=== PATIENT | female | born 1935 | race Caucasian/White ===

== ENCOUNTER 2021-12-18 | Inpatient (IN) | payer MEDICARE, BC ==
[2021-12-18] MEDS ORDERED: Iopamidol 370 76% 100 ML VIAL ONE (09:00)
[2021-12-18] MEDS ORDERED: Cepastat Lozenges 1 LOZ PO PRN (18:57)
[2021-12-18] MEDS ORDERED: Loperamide HCl 2 MG CAP PO PRN ×2 (18:57)
[2021-12-18] MEDS ORDERED: Senokot S 8.6-50 MG TAB PO PRN (18:57)
[2021-12-18] MEDS ORDERED: Acetaminophen 650 MG Suppository PR PRN (18:57)
[2021-12-18] MEDS ORDERED: Benzonatate 100 MG CAP PO PRN (18:57)
[2021-12-18] MEDS ORDERED: Guaifenesin DM 100-10/5 ML UDCUP PO PRN (18:57)
[2021-12-18] MEDS ORDERED: Ondansetron ODT 4 MG TAB PO PRN (18:57)
[2021-12-18] MEDS ORDERED: Promethazine HCl 25 MG SUPP PR PRN (18:57)
[2021-12-18] MEDS ORDERED: Calcium Carbonate 500 MG ChewTAB PO PRN (18:57)
[2021-12-18] MEDS ORDERED: Bisacodyl 5 MG TAB PO PRN (18:57)
[2021-12-18] MEDS ORDERED: Ondansetron PF 4 MG/2 ML Vial IVP PRN (18:57)
[2021-12-18] MEDS ORDERED: Bisacodyl 10 MG SUPP PR PRN (18:57)
[2021-12-18] MEDS ORDERED: Sodium Chloride 0.65% Nasal 44 ML BOT EA NARE PRN (18:57)
[2021-12-18] MEDS ORDERED: Ondansetron ODT 4 MG TAB SL PRN (20:30)
[2021-12-18] MEDS: levETIRAcetam 500 MG TAB PO SCH (21:00)
[2021-12-19 07:18] LABS: ALT (SGPT) 12 U/L (8-55); AST (SGOT) 18 U/L (5-34); Albumin 3.3 g/dL (3.4-4.8); Alkaline Phosphatase 70 U/L (40-110); Anion Gap 13 mmol/L (10-20); BUN (Urea Nitrogen) 13 mg/dL (9.8-20.1); Bilirubin, Total 0.4 mg/dL (0.2-1.2); Calc. Creatinine Clearance 59 mL/min (70-130); Calcium 8.5 mg/dL (7.8-10.44); Carbon Dioxide 24 mmol/L (23-31); Chloride 107 mmol/L (98-107); Globulin 2.6 g/dL (2.4-3.5); Glucose 92 mg/dL (83-110); Potassium 3.6 mmol/L (3.5-5.1); Protein, Total 5.9 g/dL (5.8-8.1); Sodium 140 mmol/L (136-145)
[2021-12-19 07:57] LABS: #Basophils 0.1 thou/uL (0.0-0.2); #Eosinphils 0.4 thou/uL (0.0-0.7); #Lymphocytes 1.1 thou/uL (1.20-3.40); #Monocytes 0.5 thou/uL (0.11-0.59); #Neutrophils 2.9 thou/uL (1.40-6.50); %Basophils 1.4 % (0.0-1.0); %Eosinophils 7.3 % (0.0-10.0); %Lymphocytes 22.5 % (21.0-51.0); %Monocytes 10.4 % (0.0-10.0); %Neutrophils 58.5 % (42.0-75.0); Hemoglobin 11.4 g/dL (12.0-16.0); Mean Corpuscular HGB CONC 31.9 g/dL (32.0-36.0); Mean Corpuscular Hemoglobin 24.5 pg (27.0-31.0); Mean Corpuscular Volume 76.8 fL (78.0-98.0); Mean Platelet Volume 7.7 fL (7.4-10.4); Platelet Count 362 thou/uL (130-400); RBC Distribution Width 15.9 % (11.5-14.5); Red Blood Cell (RBC) Count 4.66 mill/uL (4.20-5.40); White Blood Cell (WBC) Count 4.9 thou/uL (4.8-10.8)
[2021-12-19] MEDS: levETIRAcetam 500 MG TAB PO SCH ×2 (08:18→21:04)
[2021-12-19] MEDS: Aspirin 81 mg Enteric Coated Tablet PO SCH (08:18)
[2021-12-19] MEDS: Nebivolol HCl 2.5 MG TAB PO SCH (08:18)
[2021-12-19] MEDS: Clopidogrel Bisulfate 75 MG TAB PO SCH (08:18)
[2021-12-19] MEDS: Potassium Chloride 10 MEQ TAB PO SCH (08:19)
[2021-12-19] MEDS: Furosemide 20 MG TAB PO SCH (08:19)
[2021-12-19] MEDS: Loratadine 10 MG TAB PO SCH (08:59)
[2021-12-20] MEDS: Loratadine 10 MG TAB PO SCH (08:38)
[2021-12-20] MEDS: Potassium Chloride 10 MEQ TAB PO SCH (08:38)
[2021-12-20] MEDS: Nebivolol HCl 2.5 MG TAB PO SCH (08:38)
[2021-12-20] MEDS: levETIRAcetam 500 MG TAB PO SCH ×2 (08:39→21:37)
[2021-12-20] MEDS: Clopidogrel Bisulfate 75 MG TAB PO SCH (08:39)
[2021-12-20] MEDS: Furosemide 20 MG TAB PO SCH (08:39)
[2021-12-20] MEDS: Aspirin 81 mg Enteric Coated Tablet PO SCH (08:39)
[2021-12-21] MEDS: Acetaminophen 325 MG TAB PO PRN (04:13)
[2021-12-21] MEDS: Potassium Chloride 10 MEQ TAB PO SCH (07:51)
[2021-12-21] MEDS: Aspirin 81 mg Enteric Coated Tablet PO SCH (07:51)
[2021-12-21] MEDS: Clopidogrel Bisulfate 75 MG TAB PO SCH (07:52)
[2021-12-21] MEDS: Furosemide 20 MG TAB PO SCH (07:52)
[2021-12-21] MEDS: levETIRAcetam 500 MG TAB PO SCH ×2 (07:52→20:58)
[2021-12-21] MEDS: Nebivolol HCl 2.5 MG TAB PO SCH (07:52)
[2021-12-21] MEDS: Loratadine 10 MG TAB PO SCH (07:53)
[2021-12-22] MEDS: Nebivolol HCl 2.5 MG TAB PO SCH (08:02)
[2021-12-22] MEDS: Aspirin 81 mg Enteric Coated Tablet PO SCH (08:02)
[2021-12-22] MEDS: Furosemide 20 MG TAB PO SCH (08:02)
[2021-12-22] MEDS: Clopidogrel Bisulfate 75 MG TAB PO SCH (08:02)
[2021-12-22] MEDS: Potassium Chloride 10 MEQ TAB PO SCH (08:03)
[2021-12-22] MEDS: Loratadine 10 MG TAB PO SCH (08:03)
[2021-12-22] MEDS: levETIRAcetam 500 MG TAB PO SCH ×2 (08:03→20:50)
[2021-12-23] MEDS: Acetaminophen 325 MG TAB PO PRN ×2 (03:10→18:29)
[2021-12-23] MEDS: Loratadine 10 MG TAB PO SCH (07:45)
[2021-12-23] MEDS: Clopidogrel Bisulfate 75 MG TAB PO SCH (07:45)
[2021-12-23] MEDS: Furosemide 20 MG TAB PO SCH (07:45)
[2021-12-23] MEDS: levETIRAcetam 500 MG TAB PO SCH ×2 (07:46→21:02)
[2021-12-23] MEDS: Aspirin 81 mg Enteric Coated Tablet PO SCH (07:46)
[2021-12-23] MEDS: Nebivolol HCl 2.5 MG TAB PO SCH (07:46)
[2021-12-23] MEDS: Potassium Chloride 10 MEQ TAB PO SCH (07:46)
[2021-12-23] MEDS ORDERED: guaiFENesin ER 600 MG TAB PO PRN (22:12)
[2021-12-23] MEDS ORDERED: Fluticasone Propionate Nasal Spray 16 gm Bottle NASAL SCH (22:15)
[2021-12-23] MEDS ORDERED: traMADol HCl 50 MG TAB PO SCH (22:15)
[2021-12-24] MEDS: Potassium Chloride 10 MEQ TAB PO SCH (08:21)
[2021-12-24] MEDS: levETIRAcetam 500 MG TAB PO SCH ×2 (08:21→21:05)
[2021-12-24] MEDS: Nebivolol HCl 2.5 MG TAB PO SCH (08:21)
[2021-12-24] MEDS: Aspirin 81 mg Enteric Coated Tablet PO SCH (08:21)
[2021-12-24] MEDS: Furosemide 20 MG TAB PO SCH (08:21)
[2021-12-24] MEDS: traMADol HCl 50 MG TAB PO PRN ×2 (08:22→14:50)
[2021-12-24] MEDS: Clopidogrel Bisulfate 75 MG TAB PO SCH (08:23)
[2021-12-24] MEDS: Loratadine 10 MG TAB PO SCH (09:40)
[2021-12-24] MEDS ORDERED: Carbamide Peroxide 6.5% Otic Drops 15 ml Bottle EA EAR PRN (12:23)
[2021-12-24] MEDS: Fluticasone Propionate Nasal Spray 16 gm Bottle NASAL SCH (21:05)
[2021-12-24] MEDS: Carbamide Peroxide 6.5% Otic Drops 15 ml Bottle EA EAR SCH (21:07)
[2021-12-25] MEDS: Ibuprofen 800 MG TAB PO PRN ×2 (01:35→08:47)
[2021-12-25 05:14] LABS: Bilirubin Negative (Negative); Blood, Urine Trace (Negative); Clarity Hazy (Clear); Glucose, Urine (Dipstick) Negative (Negative); Ketone, Urine Negative (Negative); Leukocyte Small (Negative); Nitrite Negative (Negative); Protein, Urine (Dipstick) Negative (Neg-Trace); Urobilinogen 0.2 mg/dL (Less than 2)
[2021-12-25 05:23] LABS: RBC/HPF 0-3 HPF (0-3)
[2021-12-25 05:24] LABS: Bacteria/HPF 2+ HPF (None Seen)
[2021-12-25] MEDS: Nebivolol HCl 2.5 MG TAB PO SCH (08:45)
[2021-12-25] MEDS: Aspirin 81 mg Enteric Coated Tablet PO SCH (08:45)
[2021-12-25] MEDS: Fluticasone Propionate Nasal Spray 16 gm Bottle NASAL SCH ×2 (08:46→20:07)
[2021-12-25] MEDS: levETIRAcetam 500 MG TAB PO SCH ×2 (08:46→20:06)
[2021-12-25] MEDS: Loratadine 10 MG TAB PO SCH (08:46)
[2021-12-25] MEDS: Potassium Chloride 10 MEQ TAB PO SCH (08:46)
[2021-12-25] MEDS: Furosemide 20 MG TAB PO SCH (08:46)
[2021-12-25] MEDS: Clopidogrel Bisulfate 75 MG TAB PO SCH (08:46)
[2021-12-25] MEDS: Carbamide Peroxide 6.5% Otic Drops 15 ml Bottle EA EAR SCH ×3 (08:53→20:08)
[2021-12-26] MEDS: Ibuprofen 800 MG TAB PO PRN (03:12)
[2021-12-26 03:45] LABS: Bilirubin Negative (Negative); Blood, Urine Negative (Negative); Clarity Clear (Clear); Glucose, Urine (Dipstick) Negative (Negative); Ketone, Urine 15 mg/dL (Negative); Leukocyte Trace (Negative); Nitrite Positive (Negative); Protein, Urine (Dipstick) Negative (Neg-Trace); Specific Gravity, Urine 1.025 (1.005-1.030); Urobilinogen 0.2 mg/dL (Less than 2); pH, Urine 5.5 (5.0-9.0)
[2021-12-26 03:51] LABS: Bacteria/HPF 2+ HPF (None Seen); RBC/HPF 0-3 HPF (0-3); Squamous Epithelial 0-3 HPF (0-3)
[2021-12-26 03:53] LABS: Urine Culture Reflex Yes Yes
[2021-12-26] MEDS: Acetaminophen 325 MG TAB PO PRN (04:10)
[2021-12-26] MEDS: Loratadine 10 MG TAB PO SCH (09:15)
[2021-12-26] MEDS: Clopidogrel Bisulfate 75 MG TAB PO SCH (09:15)
[2021-12-26] MEDS: levETIRAcetam 500 MG TAB PO SCH ×2 (09:15→21:30)
[2021-12-26] MEDS: Nebivolol HCl 2.5 MG TAB PO SCH (09:15)
[2021-12-26] MEDS: Aspirin 81 mg Enteric Coated Tablet PO SCH (09:15)
[2021-12-26] MEDS: Furosemide 20 MG TAB PO SCH (09:16)
[2021-12-26] MEDS: Carbamide Peroxide 6.5% Otic Drops 15 ml Bottle EA EAR SCH (09:16)
[2021-12-26] MEDS: Potassium Chloride 10 MEQ TAB PO SCH (09:17)
[2021-12-26 09:44] LABS: #Basophils 0.1 thou/uL (0.0-0.2); #Eosinphils 0.2 thou/uL (0.0-0.7); #Lymphocytes 1.1 thou/uL (1.20-3.40); #Monocytes 0.7 thou/uL (0.11-0.59); #Neutrophils 4.1 thou/uL (1.40-6.50); %Basophils 1.2 % (0.0-1.0); %Eosinophils 2.6 % (0.0-10.0); %Lymphocytes 17.4 % (21.0-51.0); %Monocytes 10.9 % (0.0-10.0); Hemoglobin 11.4 g/dL (12.0-16.0); Mean Corpuscular HGB CONC 31.3 g/dL (32.0-36.0); Mean Corpuscular Hemoglobin 24.2 pg (27.0-31.0); Mean Corpuscular Volume 77.1 fL (78.0-98.0); Mean Platelet Volume 8.4 fL (7.4-10.4); Platelet Count 333 thou/uL (130-400); RBC Distribution Width 16.6 % (11.5-14.5); Red Blood Cell (RBC) Count 4.72 mill/uL (4.20-5.40)
[2021-12-26 09:47] LABS: ALT (SGPT) 8 U/L (8-55); AST (SGOT) 14 U/L (5-34); Albumin 3.5 g/dL (3.4-4.8); Alkaline Phosphatase 73 U/L (40-110); Anion Gap 14 mmol/L (10-20); BUN (Urea Nitrogen) 23 mg/dL (9.8-20.1); Bilirubin, Total 0.4 mg/dL (0.2-1.2); Calc. Creatinine Clearance 38 mL/min (70-130); Calcium 9.1 mg/dL (7.8-10.44); Carbon Dioxide 25 mmol/L (23-31); Chloride 101 mmol/L (98-107); Globulin 2.7 g/dL (2.4-3.5); Glucose 125 mg/dL (83-110); Potassium 4.2 mmol/L (3.5-5.1); Protein, Total 6.2 g/dL (5.8-8.1); Sodium 136 mmol/L (136-145)
[2021-12-26] MEDS ORDERED: Sodium Chloride 0.9% 1,000 ML IV SCH (17:00)
[2021-12-26] MEDS: Fluticasone Propionate Nasal Spray 16 gm Bottle NASAL SCH (21:30)
[2021-12-26] MEDS: Ciprofloxacin 500 MG TAB PO SCH (21:30)
[2021-12-27] MEDS: Ciprofloxacin 500 MG TAB PO SCH ×2 (05:19→21:21)
[2021-12-27] MEDS: Clopidogrel Bisulfate 75 MG TAB PO SCH (07:46)
[2021-12-27] MEDS: Nebivolol HCl 2.5 MG TAB PO SCH (07:46)
[2021-12-27] MEDS: levETIRAcetam 500 MG TAB PO SCH ×2 (07:47→21:21)
[2021-12-27] MEDS: Aspirin 81 mg Enteric Coated Tablet PO SCH (07:47)
[2021-12-27] MEDS: Loratadine 10 MG TAB PO SCH (07:47)
[2021-12-27] MEDS: Potassium Chloride 10 MEQ TAB PO SCH (07:47)
[2021-12-27] MEDS: Furosemide 20 MG TAB PO SCH (07:47)
[2021-12-27] MEDS ORDERED: Sodium Chloride 0.9% 500 ML IVPB SCH (08:30)
[2021-12-27] MEDS: Fluticasone Propionate Nasal Spray 16 gm Bottle NASAL SCH (21:21)
[2021-12-28] MEDS: Ciprofloxacin 500 MG TAB PO SCH ×2 (05:53→20:36)
[2021-12-28] MEDS: Aspirin 81 mg Enteric Coated Tablet PO SCH (08:40)
[2021-12-28] MEDS: Nebivolol HCl 2.5 MG TAB PO SCH (08:40)
[2021-12-28] MEDS: levETIRAcetam 500 MG TAB PO SCH ×2 (08:40→20:36)
[2021-12-28] MEDS: Potassium Chloride 10 MEQ TAB PO SCH (08:40)
[2021-12-28] MEDS: Loratadine 10 MG TAB PO SCH (08:40)
[2021-12-28] MEDS: Furosemide 20 MG TAB PO SCH (08:40)
[2021-12-28] MEDS: Clopidogrel Bisulfate 75 MG TAB PO SCH (08:40)
[2021-12-28] MEDS: Fluticasone Propionate Nasal Spray 16 gm Bottle NASAL SCH (20:36)
[2021-12-29] MEDS: Ciprofloxacin 500 MG TAB PO SCH ×2 (05:34→20:39)
[2021-12-29] MEDS: Clopidogrel Bisulfate 75 MG TAB PO SCH (08:42)
[2021-12-29] MEDS: levETIRAcetam 500 MG TAB PO SCH ×2 (08:42→20:39)
[2021-12-29] MEDS: Furosemide 20 MG TAB PO SCH (08:42)
[2021-12-29] MEDS: Potassium Chloride 10 MEQ TAB PO SCH (08:42)
[2021-12-29] MEDS: Aspirin 81 mg Enteric Coated Tablet PO SCH (08:42)
[2021-12-29] MEDS: Nebivolol HCl 2.5 MG TAB PO SCH (08:42)
[2021-12-29] MEDS: Loratadine 10 MG TAB PO SCH (08:43)
[2021-12-29 09:37] LABS: Anion Gap 13 mmol/L (10-20); BUN (Urea Nitrogen) 15 mg/dL (9.8-20.1); Calc. Creatinine Clearance 48 mL/min (70-130); Calcium 8.8 mg/dL (7.8-10.44); Carbon Dioxide 23 mmol/L (23-31); Chloride 106 mmol/L (98-107); Glucose 112 mg/dL (83-110); Potassium 3.4 mmol/L (3.5-5.1); Sodium 139 mmol/L (136-145)
[2021-12-29 10:07] LABS: #Basophils 0.1 thou/uL (0.0-0.2); #Eosinphils 0.3 thou/uL (0.0-0.7); #Lymphocytes 1.4 thou/uL (1.20-3.40); #Monocytes 0.5 thou/uL (0.11-0.59); #Neutrophils 4.8 thou/uL (1.40-6.50); %Basophils 1.2 % (0.0-1.0); %Eosinophils 4.8 % (0.0-10.0); %Lymphocytes 19.5 % (21.0-51.0); %Monocytes 6.8 % (0.0-10.0); %Neutrophils 67.7 % (42.0-75.0); Mean Corpuscular HGB CONC 30.3 g/dL (32.0-36.0); Mean Corpuscular Hemoglobin 24.1 pg (27.0-31.0); Mean Corpuscular Volume 79.5 fL (78.0-98.0); Platelet Count 401 thou/uL (130-400); RBC Distribution Width 17.6 % (11.5-14.5); White Blood Cell (WBC) Count 7.1 thou/uL (4.8-10.8)
[2021-12-29] MEDS: Fluticasone Propionate Nasal Spray 16 gm Bottle NASAL SCH (20:39)
[2021-12-30] MEDS: Nebivolol HCl 2.5 MG TAB PO SCH (08:55)
[2021-12-30] MEDS: Clopidogrel Bisulfate 75 MG TAB PO SCH (08:58)
[2021-12-30] MEDS: levETIRAcetam 500 MG TAB PO SCH ×2 (08:58→21:16)
[2021-12-30] MEDS: Furosemide 20 MG TAB PO SCH (08:59)
[2021-12-30] MEDS: Loratadine 10 MG TAB PO SCH (08:59)
[2021-12-30] MEDS: Potassium Chloride 10 MEQ TAB PO SCH (08:59)
[2021-12-30] MEDS: Aspirin 81 mg Enteric Coated Tablet PO SCH (08:59)
[2021-12-30] MEDS: Acetaminophen 325 MG TAB PO PRN (09:40)
[2021-12-30] MEDS: Fluticasone Propionate Nasal Spray 16 gm Bottle NASAL SCH (21:22)
[2021-12-31] MEDS: Nebivolol HCl 2.5 MG TAB PO SCH (08:16)
[2021-12-31] MEDS: Furosemide 20 MG TAB PO SCH (08:16)
[2021-12-31] MEDS: Potassium Chloride 20 MEQ TAB PO SCH (08:16)
[2021-12-31] MEDS: Aspirin 81 mg Enteric Coated Tablet PO SCH (08:16)
[2021-12-31] MEDS: levETIRAcetam 500 MG TAB PO SCH ×2 (08:17→21:40)
[2021-12-31] MEDS: Clopidogrel Bisulfate 75 MG TAB PO SCH (08:17)
[2021-12-31] MEDS: Loratadine 10 MG TAB PO SCH (08:17)
[2021-12-31] MEDS: Acetaminophen 325 MG TAB PO PRN (08:30)
[2021-12-31] MEDS: Fluticasone Propionate Nasal Spray 16 gm Bottle NASAL SCH (21:40)
[2022-01-01 06:39] LABS: #Basophils 0.1 thou/uL (0.0-0.2); #Eosinphils 0.4 thou/uL (0.0-0.7); #Lymphocytes 1.2 thou/uL (1.20-3.40); #Monocytes 0.6 thou/uL (0.11-0.59); #Neutrophils 4.1 thou/uL (1.40-6.50); %Basophils 1.3 % (0.0-1.0); %Eosinophils 5.5 % (0.0-10.0); %Lymphocytes 19.5 % (21.0-51.0); %Neutrophils 64.7 % (42.0-75.0); Hemoglobin 11.1 g/dL (12.0-16.0); Mean Corpuscular HGB CONC 30.5 g/dL (32.0-36.0); Mean Corpuscular Hemoglobin 23.9 pg (27.0-31.0); Mean Corpuscular Volume 78.6 fL (78.0-98.0); Mean Platelet Volume 7.5 fL (7.4-10.4); Platelet Count 414 thou/uL (130-400); RBC Distribution Width 17.4 % (11.5-14.5); Red Blood Cell (RBC) Count 4.65 mill/uL (4.20-5.40); White Blood Cell (WBC) Count 6.4 thou/uL (4.8-10.8)
[2022-01-01 06:42] LABS: ALT (SGPT) 8 U/L (8-55); AST (SGOT) 14 U/L (5-34); Albumin 3.4 g/dL (3.4-4.8); Alkaline Phosphatase 70 U/L (40-110); Anion Gap 14 mmol/L (10-20); BUN (Urea Nitrogen) 15 mg/dL (9.8-20.1); Bilirubin, Total 0.4 mg/dL (0.2-1.2); Calc. Creatinine Clearance 54 mL/min (70-130); Calcium 8.7 mg/dL (7.8-10.44); Carbon Dioxide 24 mmol/L (23-31); Chloride 106 mmol/L (98-107); Globulin 2.6 g/dL (2.4-3.5); Glucose 100 mg/dL (83-110); Potassium 4.1 mmol/L (3.5-5.1); Sodium 140 mmol/L (136-145)
[2022-01-01] MEDS: Loratadine 10 MG TAB PO SCH (08:17)
[2022-01-01] MEDS: Potassium Chloride 20 MEQ TAB PO SCH (08:17)
[2022-01-01] MEDS: Aspirin 81 mg Enteric Coated Tablet PO SCH (08:17)
[2022-01-01] MEDS: Clopidogrel Bisulfate 75 MG TAB PO SCH (08:18)
[2022-01-01] MEDS: Nebivolol HCl 2.5 MG TAB PO SCH (08:18)
[2022-01-01] MEDS: levETIRAcetam 500 MG TAB PO SCH ×2 (08:18→21:01)
[2022-01-01] MEDS: Furosemide 20 MG TAB PO SCH (08:18)
[2022-01-01] MEDS: Acetaminophen 325 MG TAB PO PRN (08:18)
[2022-01-01] MEDS: Fluticasone Propionate Nasal Spray 16 gm Bottle NASAL SCH (21:00)
[2022-01-02] MEDS: Potassium Chloride 20 MEQ TAB PO SCH (08:40)
[2022-01-02] MEDS: Loratadine 10 MG TAB PO SCH (08:41)
[2022-01-02] MEDS: Furosemide 20 MG TAB PO SCH (08:41)
[2022-01-02] MEDS: Clopidogrel Bisulfate 75 MG TAB PO SCH (08:41)
[2022-01-02] MEDS: Aspirin 81 mg Enteric Coated Tablet PO SCH (08:41)
[2022-01-02] MEDS: levETIRAcetam 500 MG TAB PO SCH ×2 (08:41→20:18)
[2022-01-02] MEDS: Nebivolol HCl 2.5 MG TAB PO SCH (08:41)
[2022-01-02] MEDS: Fluticasone Propionate Nasal Spray 16 gm Bottle NASAL SCH (20:18)
[2022-01-03] MEDS: Potassium Chloride 20 MEQ TAB PO SCH (08:34)
[2022-01-03] MEDS: Furosemide 20 MG TAB PO SCH (08:34)
[2022-01-03] MEDS: Nebivolol HCl 2.5 MG TAB PO SCH (08:34)
[2022-01-03] MEDS: Aspirin 81 mg Enteric Coated Tablet PO SCH (08:34)
[2022-01-03] MEDS: levETIRAcetam 500 MG TAB PO SCH ×2 (08:34→20:23)
[2022-01-03] MEDS: Clopidogrel Bisulfate 75 MG TAB PO SCH (08:34)
[2022-01-03] MEDS: Loratadine 10 MG TAB PO SCH (08:34)
[2022-01-03] MEDS: Fluticasone Propionate Nasal Spray 16 gm Bottle NASAL SCH (20:23)
[2022-01-04] MEDS: Potassium Chloride 20 MEQ TAB PO SCH (09:18)
[2022-01-04] MEDS: Furosemide 20 MG TAB PO SCH (09:19)
[2022-01-04] MEDS: Clopidogrel Bisulfate 75 MG TAB PO SCH (09:19)
[2022-01-04] MEDS: Aspirin 81 mg Enteric Coated Tablet PO SCH (09:19)
[2022-01-04] MEDS: levETIRAcetam 500 MG TAB PO SCH ×2 (09:19→20:28)
[2022-01-04] MEDS: Loratadine 10 MG TAB PO SCH (09:19)
[2022-01-04] MEDS: Nebivolol HCl 2.5 MG TAB PO SCH (09:20)
[2022-01-04] MEDS: Fluticasone Propionate Nasal Spray 16 gm Bottle NASAL SCH (20:28)
[2022-01-05] MEDS: Potassium Chloride 20 MEQ TAB PO SCH (08:29)
[2022-01-05] MEDS: Furosemide 20 MG TAB PO SCH (08:30)
[2022-01-05] MEDS: Aspirin 81 mg Enteric Coated Tablet PO SCH (08:30)
[2022-01-05] MEDS: levETIRAcetam 500 MG TAB PO SCH ×2 (08:30→20:42)
[2022-01-05] MEDS: Nebivolol HCl 2.5 MG TAB PO SCH (08:30)
[2022-01-05] MEDS: Loratadine 10 MG TAB PO SCH (08:30)
[2022-01-05] MEDS: Clopidogrel Bisulfate 75 MG TAB PO SCH (08:30)
[2022-01-05] MEDS: Fluticasone Propionate Nasal Spray 16 gm Bottle NASAL SCH (20:43)
[2022-01-06] MEDS: Acetaminophen 325 MG TAB PO PRN ×2 (03:09→23:42)
[2022-01-06 06:42] LABS: Anion Gap 13 mmol/L (10-20); BUN (Urea Nitrogen) 23 mg/dL (9.8-20.1); Calc. Creatinine Clearance 46 mL/min (70-130); Calcium 8.9 mg/dL (7.8-10.44); Carbon Dioxide 25 mmol/L (23-31); Chloride 102 mmol/L (98-107); Glucose 97 mg/dL (83-110); Potassium 4.3 mmol/L (3.5-5.1); Sodium 136 mmol/L (136-145)
[2022-01-06 07:06] LABS: #Basophils 0.1 thou/uL (0.0-0.2); #Eosinphils 0.3 thou/uL (0.0-0.7); #Lymphocytes 1.3 thou/uL (1.20-3.40); #Monocytes 0.6 thou/uL (0.11-0.59); #Neutrophils 3.6 thou/uL (1.40-6.50); %Basophils 1.3 % (0.0-1.0); %Eosinophils 5.5 % (0.0-10.0); %Lymphocytes 22.6 % (21.0-51.0); %Monocytes 9.8 % (0.0-10.0); %Neutrophils 60.8 % (42.0-75.0); Hemoglobin 11.6 g/dL (12.0-16.0); Mean Corpuscular HGB CONC 30.6 g/dL (32.0-36.0); Mean Corpuscular Volume 78.3 fL (78.0-98.0); Mean Platelet Volume 7.4 fL (7.4-10.4); Platelet Count 405 thou/uL (130-400); Red Blood Cell (RBC) Count 4.82 mill/uL (4.20-5.40); White Blood Cell (WBC) Count 5.9 thou/uL (4.8-10.8)
[2022-01-06] MEDS ORDERED: Iopamidol 370 76% 100 ML VIAL ONE (09:00)
[2022-01-06] MEDS: Potassium Chloride 20 MEQ TAB PO SCH (10:18)
[2022-01-06] MEDS: Loratadine 10 MG TAB PO SCH (10:19)
[2022-01-06] MEDS: Aspirin 81 mg Enteric Coated Tablet PO SCH (10:19)
[2022-01-06] MEDS: Nebivolol HCl 2.5 MG TAB PO SCH (10:19)
[2022-01-06] MEDS: levETIRAcetam 500 MG TAB PO SCH ×2 (10:19→20:35)
[2022-01-06] MEDS: Clopidogrel Bisulfate 75 MG TAB PO SCH (10:20)
[2022-01-06] MEDS: Furosemide 20 MG TAB PO SCH (10:20)
[2022-01-06] MEDS: Polyethylene Glycol 3350 17 GM Packet PO SCH (10:20)
[2022-01-06] MEDS: Fluticasone Propionate Nasal Spray 16 gm Bottle NASAL SCH (20:35)
[2022-01-07] MEDS: Nebivolol HCl 2.5 MG TAB PO SCH (08:07)
[2022-01-07] MEDS: Furosemide 20 MG TAB PO SCH (08:08)
[2022-01-07] MEDS: levETIRAcetam 500 MG TAB PO SCH ×2 (08:08→20:51)
[2022-01-07] MEDS: Potassium Chloride 20 MEQ TAB PO SCH (08:08)
[2022-01-07] MEDS: Loratadine 10 MG TAB PO SCH (08:08)
[2022-01-07] MEDS: Aspirin 81 mg Enteric Coated Tablet PO SCH (08:08)
[2022-01-07] MEDS: Clopidogrel Bisulfate 75 MG TAB PO SCH (08:08)
[2022-01-07] MEDS: Polyethylene Glycol 3350 17 GM Packet PO SCH (08:09)
[2022-01-07] MEDS: Ibuprofen 800 MG TAB PO PRN (13:52)
[2022-01-07] MEDS: Fluticasone Propionate Nasal Spray 16 gm Bottle NASAL SCH (20:50)
[2022-01-08] MEDS: levETIRAcetam 500 MG TAB PO SCH ×2 (08:41→20:37)
[2022-01-08] MEDS: Aspirin 81 mg Enteric Coated Tablet PO SCH (08:41)
[2022-01-08] MEDS: Clopidogrel Bisulfate 75 MG TAB PO SCH (08:41)
[2022-01-08] MEDS: Potassium Chloride 20 MEQ TAB PO SCH (08:41)
[2022-01-08] MEDS: Furosemide 20 MG TAB PO SCH (08:41)
[2022-01-08] MEDS: Nebivolol HCl 2.5 MG TAB PO SCH (08:41)
[2022-01-08] MEDS: Loratadine 10 MG TAB PO SCH (08:41)
[2022-01-08] MEDS: Polyethylene Glycol 3350 17 GM Packet PO SCH (08:49)
[2022-01-08] MEDS: Fluticasone Propionate Nasal Spray 16 gm Bottle NASAL SCH (20:37)
[2022-01-09] MEDS: Furosemide 20 MG TAB PO SCH (09:05)
[2022-01-09] MEDS: Loratadine 10 MG TAB PO SCH (09:05)
[2022-01-09] MEDS: Nebivolol HCl 2.5 MG TAB PO SCH (09:05)
[2022-01-09] MEDS: Clopidogrel Bisulfate 75 MG TAB PO SCH (09:05)
[2022-01-09] MEDS: Aspirin 81 mg Enteric Coated Tablet PO SCH (09:05)
[2022-01-09] MEDS: Polyethylene Glycol 3350 17 GM Packet PO SCH (09:09)
[2022-01-09] MEDS: Potassium Chloride 20 MEQ TAB PO SCH (09:09)
[2022-01-09] MEDS: levETIRAcetam 500 MG TAB PO SCH ×2 (09:09→21:12)
[2022-01-09] MEDS: Fluticasone Propionate Nasal Spray 16 gm Bottle NASAL SCH (21:13)
[2022-01-10] MEDS: Potassium Chloride 20 MEQ TAB PO SCH (08:27)
[2022-01-10] MEDS: Clopidogrel Bisulfate 75 MG TAB PO SCH (08:28)
[2022-01-10] MEDS: Loratadine 10 MG TAB PO SCH (08:28)
[2022-01-10] MEDS: Aspirin 81 mg Enteric Coated Tablet PO SCH (08:28)
[2022-01-10] MEDS: Nebivolol HCl 2.5 MG TAB PO SCH (08:28)
[2022-01-10] MEDS: levETIRAcetam 500 MG TAB PO SCH ×2 (08:28→21:09)
[2022-01-10] MEDS: Furosemide 20 MG TAB PO SCH (08:28)
[2022-01-10] MEDS: Polyethylene Glycol 3350 17 GM Packet PO SCH (08:29)
[2022-01-10] MEDS: Fluticasone Propionate Nasal Spray 16 gm Bottle NASAL SCH (21:09)
[2022-01-11 06:35] LABS: #Basophils 0.1 thou/uL (0.0-0.2); #Eosinphils 0.3 thou/uL (0.0-0.7); #Lymphocytes 1.9 thou/uL (1.20-3.40); #Monocytes 0.6 thou/uL (0.11-0.59); #Neutrophils 4.4 thou/uL (1.40-6.50); %Basophils 1.4 % (0.0-1.0); %Eosinophils 4.5 % (0.0-10.0); %Lymphocytes 25.9 % (21.0-51.0); %Monocytes 7.7 % (0.0-10.0); %Neutrophils 60.5 % (42.0-75.0); Hemoglobin 12.7 g/dL (12.0-16.0); Mean Corpuscular HGB CONC 29.3 g/dL (32.0-36.0); Mean Corpuscular Volume 81.8 fL (78.0-98.0); Mean Platelet Volume 8.6 fL (7.4-10.4); Platelet Count 451 thou/uL (130-400); RBC Distribution Width 17.8 % (11.5-14.5); Red Blood Cell (RBC) Count 5.32 mill/uL (4.20-5.40); White Blood Cell (WBC) Count 7.2 thou/uL (4.8-10.8)
[2022-01-11 06:38] LABS: Anion Gap 16 mmol/L (10-20); BUN (Urea Nitrogen) 27 mg/dL (9.8-20.1); Calc. Creatinine Clearance 43 mL/min (70-130); Calcium 9.3 mg/dL (7.8-10.44); Carbon Dioxide 25 mmol/L (23-31); Chloride 102 mmol/L (98-107); Glucose 100 mg/dL (83-110); Potassium 4.2 mmol/L (3.5-5.1); Sodium 139 mmol/L (136-145)
[2022-01-11] MEDS: Potassium Chloride 20 MEQ TAB PO SCH (08:06)
[2022-01-11] MEDS: Clopidogrel Bisulfate 75 MG TAB PO SCH (08:06)
[2022-01-11] MEDS: Furosemide 20 MG TAB PO SCH (08:06)
[2022-01-11] MEDS: Loratadine 10 MG TAB PO SCH (08:06)
[2022-01-11] MEDS: levETIRAcetam 500 MG TAB PO SCH ×2 (08:06→21:35)
[2022-01-11] MEDS: Aspirin 81 mg Enteric Coated Tablet PO SCH (08:07)
[2022-01-11] MEDS: Nebivolol HCl 2.5 MG TAB PO SCH (08:07)
[2022-01-11] MEDS: Polyethylene Glycol 3350 17 GM Packet PO SCH (08:07)
[2022-01-11] MEDS: Fluticasone Propionate Nasal Spray 16 gm Bottle NASAL SCH (21:35)
[2022-01-12] MEDS: Aspirin 81 mg Enteric Coated Tablet PO SCH (08:11)
[2022-01-12] MEDS: Furosemide 20 MG TAB PO SCH (08:11)
[2022-01-12] MEDS: levETIRAcetam 500 MG TAB PO SCH ×2 (08:11→20:59)
[2022-01-12] MEDS: Nebivolol HCl 2.5 MG TAB PO SCH (08:11)
[2022-01-12] MEDS: Clopidogrel Bisulfate 75 MG TAB PO SCH (08:11)
[2022-01-12] MEDS: Loratadine 10 MG TAB PO SCH (08:11)
[2022-01-12] MEDS: Potassium Chloride 20 MEQ TAB PO SCH (08:13)
[2022-01-12] MEDS: Polyethylene Glycol 3350 17 GM Packet PO SCH (08:13)
[2022-01-12] MEDS: Fluticasone Propionate Nasal Spray 16 gm Bottle NASAL SCH (20:59)
[2022-01-13] MEDS: Aspirin 81 mg Enteric Coated Tablet PO SCH (08:15)
[2022-01-13] MEDS: Loratadine 10 MG TAB PO SCH (08:15)
[2022-01-13] MEDS: Nebivolol HCl 2.5 MG TAB PO SCH (08:15)
[2022-01-13] MEDS: Clopidogrel Bisulfate 75 MG TAB PO SCH (08:15)
[2022-01-13] MEDS: Furosemide 20 MG TAB PO SCH (08:16)
[2022-01-13] MEDS: levETIRAcetam 500 MG TAB PO SCH ×2 (08:17→20:19)
[2022-01-13] MEDS: Potassium Chloride 20 MEQ TAB PO SCH (08:20)
[2022-01-13] MEDS: Polyethylene Glycol 3350 17 GM Packet PO SCH (08:21)
[2022-01-13] MEDS: Fluticasone Propionate Nasal Spray 16 gm Bottle NASAL SCH (20:19)
[2022-01-14 06:42] LABS: Anion Gap 13 mmol/L (10-20); BUN (Urea Nitrogen) 22 mg/dL (9.8-20.1); Calc. Creatinine Clearance 45 mL/min (70-130); Carbon Dioxide 25 mmol/L (23-31); Chloride 104 mmol/L (98-107); Glucose 93 mg/dL (83-110); Potassium 4.1 mmol/L (3.5-5.1); Sodium 138 mmol/L (136-145)
[2022-01-14] MEDS: Polyethylene Glycol 3350 17 GM Packet PO SCH (09:30)
[2022-01-14] MEDS: Loratadine 10 MG TAB PO SCH (09:31)
[2022-01-14] MEDS: Nebivolol HCl 2.5 MG TAB PO SCH (09:31)
[2022-01-14] MEDS: Aspirin 81 mg Enteric Coated Tablet PO SCH (09:31)
[2022-01-14] MEDS: Clopidogrel Bisulfate 75 MG TAB PO SCH (09:31)
[2022-01-14] MEDS: Furosemide 20 MG TAB PO SCH (09:31)
[2022-01-14] MEDS: levETIRAcetam 500 MG TAB PO SCH ×2 (09:31→22:06)
[2022-01-14] MEDS: Potassium Chloride 20 MEQ TAB PO SCH (09:32)
[2022-01-14] MEDS: Fluticasone Propionate Nasal Spray 16 gm Bottle NASAL SCH (22:06)
[2022-01-15] MEDS: Polyethylene Glycol 3350 17 GM Packet PO SCH (08:51)
[2022-01-15] MEDS: Loratadine 10 MG TAB PO SCH (08:52)
[2022-01-15] MEDS: Aspirin 81 mg Enteric Coated Tablet PO SCH (08:52)
[2022-01-15] MEDS: Nebivolol HCl 2.5 MG TAB PO SCH (08:53)
[2022-01-15] MEDS: Furosemide 20 MG TAB PO SCH (08:54)
[2022-01-15] MEDS: Potassium Chloride 20 MEQ TAB PO SCH (08:54)
[2022-01-15] MEDS: levETIRAcetam 500 MG TAB PO SCH ×2 (08:54→20:45)
[2022-01-15] MEDS: Clopidogrel Bisulfate 75 MG TAB PO SCH (08:54)
[2022-01-15] MEDS: Fluticasone Propionate Nasal Spray 16 gm Bottle NASAL SCH (20:45)
[2022-01-16] MEDS: Acetaminophen 325 MG TAB PO PRN (08:29)
[2022-01-16] MEDS: Furosemide 20 MG TAB PO SCH (08:31)
[2022-01-16] MEDS: Clopidogrel Bisulfate 75 MG TAB PO SCH (08:31)
[2022-01-16] MEDS: levETIRAcetam 500 MG TAB PO SCH (08:31)
[2022-01-16] MEDS: Nebivolol HCl 2.5 MG TAB PO SCH (08:33)
[2022-01-16] MEDS: Aspirin 81 mg Enteric Coated Tablet PO SCH (08:33)
[2022-01-16] MEDS: Loratadine 10 MG TAB PO SCH (08:33)
[2022-01-16] MEDS: Potassium Chloride 20 MEQ TAB PO SCH (08:33)
[2022-01-16] MEDS: Polyethylene Glycol 3350 17 GM Packet PO SCH (08:34)
== END 2022-01-16 11:07 | disposition home health service (06) | DRG 56 ==
PROVIDERS: ADMIT Family Medicine
CPT/HCPCS: 36415; 36416; 70450; 70481; 70496; 70498; 71045; 80048; 80053; 81001; 81003; 81015; 82274; 84484; 85025; 87077; 87086; 87186; J7030; J7050; Q9967